=== PATIENT | female | born 1990 | race Caucasian/White ===

== ENCOUNTER 2020-05-25 16:40 | Inpatient (IN) | payer OTHER ==
[~2020-05-25] VITALS: Ht 167.6 cm; Wt 95.3 kg
[2020-05-25] MEDS ORDERED: PRENATAL VITAM1 EAC5 PO (18:30)
[2020-05-25] MEDS ORDERED: VALTREX1000 MG PO (18:31)
[2020-05-25 18:40] LABS: RED BLOOD COUNT 4.15 M/UL (4.00-5.10); WHITE BLOOD COUNT 10.9 K/UL (4.5-11.0)
[2020-05-27 02:38] LABS: HEMOGLOBIN 11.1 gm/dl (12.3-15.3)
[2020-05-27] MEDS ORDERED: IBUPROFEN600 MG PO (09:39)
[2020-05-27] MEDS ORDERED: HYDROCODONE-AC1 EACH PO (09:39)
[2020-05-27] MEDS ORDERED: DOCUSATE SODIU250 MG PO (09:39)
== END 2020-05-27 18:44 | disposition home or self-care (01) | DRG 788 ==
LOC: GENOP 16:40 → OB 18:20
PROVIDERS: ADMIT Obstetrics & Gynecology
PROC: 10907ZC Drainage of Amniotic Fluid, Therapeutic from Products of Conception, Via Natural or Artificial Opening (ICD-10-PCS; 2020-05-25)
PROC: 0U7C7ZZ Dilation of Cervix, Via Natural or Artificial Opening (ICD-10-PCS; 2020-05-25)
PROC: 10H07YZ Insertion of Other Device into Products of Conception, Via Natural or Artificial Opening (ICD-10-PCS; 2020-05-25)
PROC: 3E033VJ Introduction of Other Hormone into Peripheral Vein, Percutaneous Approach (ICD-10-PCS; 2020-05-25)
PROC: 10D00Z1 Extraction of Products of Conception, Low, Open Approach (ICD-10-PCS; principal; 2020-05-26 09:19)
DX: O98.52 Other viral diseases complicating childbirth (principal); O75.0 Maternal distress during labor and delivery; O61.8 Other failed induction of labor; Z37.0 Single live birth; Z3A.38 38 weeks gestation of pregnancy; O76 Abnormality in fetal heart rate and rhythm complicating labor and delivery; O69.81X0 Labor and delivery complicated by cord around neck, without compression, not applicable or unspecified; B00.9 Herpesviral infection, unspecified; Z20.822 Contact with and (suspected) exposure to COVID-19
CPT/HCPCS: 36415; 74018; 81001; 82800; 85014; 85018; 85025; 90471; C9113; J0690; J1170; J1885; J2274; J2405; J2590; J3010; J7120; U0003

== ENCOUNTER 2020-10-25 09:02 | Observation (INO) | payer OTHER ==
[~2020-10-25] VITALS: Ht 167.6 cm; Wt 83.9 kg
[~2020-10-25 09:02] MED LIST: DOCUSATE SODIU250 MG PO; HYDROCODONE-AC1 EACH PO; IBUPROFEN600 MG PO; PRENATAL VITAM1 EAC5 PO; VALTREX1000 MG PO
[2020-10-25 10:03] LABS: HEMOGLOBIN 13.4 gm/dl (12.3-15.3); RED BLOOD COUNT 4.41 M/UL (4.00-5.10); WHITE BLOOD COUNT 11.7 K/UL (4.5-11.0)
[2020-10-25 11:36] LABS: BUN/CREATININE RATIO 14 (0-10)
[2020-10-26] MEDS ORDERED: KEFLEX CAP 250250 MG PO (16:49)
[2020-10-26] MEDS ORDERED: HYDROCODON-ACE1 EAC6 PO (16:49)
== END 2020-10-28 13:08 | disposition home or self-care (01) ==
LOC: ER1 09:02 → CDU 13:43 → M/S 10-26 14:45
PROVIDERS: Emergency Medicine; ADMIT Surgery
DX: S82.111A Displaced fracture of right tibial spine, initial encounter for closed fracture (principal); V89.2XXA Person injured in unspecified motor-vehicle accident, traffic, initial encounter; S83.91XA Sprain of unspecified site of right knee, initial encounter; S22.32XA Fracture of one rib, left side, initial encounter for closed fracture; S22.31XA Fracture of one rib, right side, initial encounter for closed fracture; S20.212A Contusion of left front wall of thorax, initial encounter; S30.0XXA Contusion of lower back and pelvis, initial encounter; G43.909 Migraine, unspecified, not intractable, without status migrainosus; Z20.822 Contact with and (suspected) exposure to COVID-19
CPT/HCPCS: 36600; 70450; 71260; 72125; 73564; 73630; 80053; 81001; 82803; 84703; 85025; 90471; 90714; 93005; 96374; 96375; 97116-GP-CQ; 97161; 97166; 97530-GP-CQ; 97535; 99285; G0378; J0690; J1100; J1885; J2270; J2405; J2704; J3010; J3480; J7120; Q9967; U0002

== ENCOUNTER → 2020-11-18 | Outpatient (CLI) | payer OTHER ==
[~2020-11-18] MED LIST changes: +HYDROCODON-ACE1 EAC6 PO; +KEFLEX CAP 250250 MG PO
== END ==
LOC: KOH-I 15:00
DX: S83.511A Sprain of anterior cruciate ligament of right knee, initial encounter (principal); S82.201A Unspecified fracture of shaft of right tibia, initial encounter for closed fracture
CPT/HCPCS: 73721

== ENCOUNTER 2021-03-06 20:08 | Emergency (ER) | payer OTHER ==
[2021-03-07] MEDS ORDERED: LODINE CAP 300300 MG PO (01:09)
[2021-03-07] MEDS ORDERED: NORFLEX 100 MG100 MG PO (01:09)
== END 2021-03-07 01:29 | disposition home or self-care (01) ==
LOC: ER1 20:08
DX: S63.501A Unspecified sprain of right wrist, initial encounter (principal); S83.91XA Sprain of unspecified site of right knee, initial encounter; S63.602A Unspecified sprain of left thumb, initial encounter; S80.12XA Contusion of left lower leg, initial encounter; F17.290 Nicotine dependence, other tobacco product, uncomplicated; V49.40XA Driver injured in collision with unspecified motor vehicles in traffic accident, initial encounter; W22.11XA Striking against or struck by driver side automobile airbag, initial encounter; Y92.410 Unspecified street and highway as the place of occurrence of the external cause
CPT/HCPCS: 71045; 73110; 73564; 99283